=== PATIENT | female | born 1945 | race Caucasian/White ===

== ENCOUNTER 2022-10-29 13:26 | Emergency (ER) | payer OTHER ==
[2022-10-29 14:00] VITALS: BP 122/75; PULSE 74; RESP 20; TEMP 98.2; BMI 29.2
[2022-10-29 16:07] LABS: HEMATOCRIT 42.9 % (32.4-45.2); HEMOGLOBIN 15.2 G/dL (10.7-15.3); MCH 30.4 pg (25.7-33.7); MCHC 35.5 g/dl (32.0-36.0); MEAN CELL VOLUME 85.7 fl (80-96); MEAN PLT VOLUME 8.1 fl (7.5-11.1); PLATELET COUNT 251.2 10^3/uL (134-434); RDW 15.2 % (11.6-15.6); WHITE BLOOD COUNT 9.8 10^3/uL (4.0-10.8)
[2022-10-29 16:25] LABS: ALBUMIN 3.9 g/dl (3.4-5.0); BILIRUBIN,TOTAL 1.9 mg/dl (0.2-1); CALCIUM 9.1 mg/dl (8.5-10); CREATININE 0.8 mg/dl (0.55-1.3)
[2022-10-29 17:11] LABS: PLATELET ESTIMATE ADEQUATE
[2022-10-29] MEDS ORDERED: predniSONE 20 MG TABLET (UD) PO ONE (17:53)
[2022-10-29] MEDS ORDERED: predniSONE 20 MG TABLET (UD) ONE (17:54)
[2022-10-29] MEDS ORDERED: AZITHROMYCIN 250 MG TABLET PO ONE (17:54)
[2022-10-29] MEDS ORDERED: AZITHROMYCIN 500 MG TABLET ONE (17:54)
[2022-10-29 19:19] LABS: CALCIUM 8.7 mg/dL (8.5-10.1)
[2022-10-29 19:20] LABS: BLOOD UREA NITROGEN 12.6 mg/dL (7-18)
[2022-10-29 19:23] LABS: CREATININE 0.7 mg/dL (0.55-1.3)
== END 2022-10-29 18:04 | disposition home or self-care (01) ==
LOC: FER 13:26
DX: U07.1 COVID-19 (principal)
CPT/HCPCS: 0241U-QW; 36415; 71045-TC-FY; 80048; 80053; 84484; 85027; 87040; 93005; 99285-25

== ENCOUNTER 2025-04-15 21:32 | Inpatient (IN) | payer OTHER ==
[2025-04-15 22:24] LABS: ABSOLUTE IMMATURE GRANULOCYTES 0.05 x10^3/uL (0.0-0.031); BASOPHILS # 0.03 x10^3/uL (0.01-0.08); EOSINOPHIL % 0.1 % (0.7-5.8); EOSINOPHILS # 0.01 x10^3/uL (0.04-0.36); HEMATOCRIT 47.1 % (34.1-44.9); HEMOGLOBIN 15.7 g/dL (11.2-15.7); MCHC 33.3 g/dl (32.2-35.5); MEAN CELL VOLUME 87.9 fl (79.4-94.8); MEAN PLT VOLUME 9.3 fl (9.4-12.3); MONOCYTE # 0.85 x10^3/uL (0.24-0.86); MONOCYTE % 6.8 % (4.7-12.5); PLATELET COUNT 419 x10^3/uL (182-369); RDW 13.9 % (12.5-17.0); VENOUS BASE EXCESS 4.6 mmol/L (-2-2); VENOUS O2 SATURATION 86.7 % (70-80); VENOUS PCO2 38.5 mmHg (38-52); VENOUS PH 7.483 (7.310-7.410)
[2025-04-15 22:40] LABS: INR 1.11 (0.83-1.09); PROTHROMBIN TIME (PATIENT) 12.1 SEC (9.7-13.0)
[2025-04-15 22:42] LABS: ACTIVATED PTT 26.7 SECONDS (25.2-36.5)
[2025-04-15 22:51] LABS: POTASSIUM 4.4 mmol/L (3.5-5.1)
[2025-04-15 22:53] LABS: CALCIUM 10.5 mg/dL (8.5-10.1)
[2025-04-15 22:54] LABS: BLOOD UREA NITROGEN 19.9 mg/dL (7-18)
[2025-04-15 22:57] LABS: CREATININE 0.8 mg/dL (0.55-1.3); PHOSPHOROUS 4.5 mg/dL (2.5-4.9)
[2025-04-15 22:58] LABS: BILIRUBIN,TOTAL 1.1 mg/dL (0.2-1); TOT PROT 7.2 g/dl (6.4-8.2)
[2025-04-15] MEDS: SODIUM CHLORIDE 1,000 ML IV STA (23:38)
[2025-04-16] MEDS ORDERED: ONDANSETRON 4 MG/2 ML VIAL ONE (00:38)
[2025-04-16] MEDS: ONDANSETRON 4 MG/2 ML VIAL IVPUSH ONE (01:16)
[2025-04-16] MEDS ORDERED: ONDANSETRON 4 MG/2 ML VIAL IVPUSH PRN (02:34)
[2025-04-16] MEDS ORDERED: hydrALAZINE HCL 20 MG/ML VIAL IVPUSH PRN ×2 (02:37→02:45)
[2025-04-16] MEDS: SODIUM CHLORIDE 1,000 ML IV SCH (02:44)
[2025-04-16] MEDS: ACETAMINOPHEN 1000 MG/100 ML BAG IVPB PRN (05:15)
[2025-04-16] MEDS: INSULIN ASPART SLIDING SCALE (NOVOLOG) 1 VIAL SQ SCH (06:36)
[2025-04-16 07:40] LABS: ABSOLUTE IMMATURE GRANULOCYTES 0.05 x10^3/uL (0.0-0.031); BASOPHILS # 0.03 x10^3/uL (0.01-0.08); EOSINOPHIL % 0.1 % (0.7-5.8); EOSINOPHILS # 0.01 x10^3/uL (0.04-0.36); HEMATOCRIT 42.1 % (34.1-44.9); HEMOGLOBIN 13.9 g/dL (11.2-15.7); MEAN CELL VOLUME 88.3 fl (79.4-94.8); MEAN PLT VOLUME 9.3 fl (9.4-12.3); MONOCYTE # 0.62 x10^3/uL (0.24-0.86); MONOCYTE % 5.8 % (4.7-12.5); PLATELET COUNT 341 x10^3/uL (182-369); RDW 14.1 % (12.5-17.0)
[2025-04-16 07:58] LABS: ALBUMIN 3.5 g/dl (3.4-5.0); BLOOD UREA NITROGEN 19.1 mg/dL (7-18); CALCIUM 10.1 mg/dL (8.5-10.1); POTASSIUM 3.6 mmol/L (3.5-5.1)
[2025-04-16 08:01] LABS: BILIRUBIN,DIRECT 0.3 mg/dL (0.0-0.2); CREATININE 0.7 mg/dL (0.55-1.3)
[2025-04-16 08:02] LABS: BILIRUBIN,TOTAL 0.9 mg/dL (0.2-1); PHOSPHOROUS 4.2 mg/dL (2.5-4.9); TOT PROT 6.2 g/dl (6.4-8.2)
[2025-04-16] MEDS: LEVOTHYROXINE SODIUM 100 MCG 5 ML VIAL IVPUSH SCH (09:29)
[2025-04-16] MEDS: ENOXAPARIN NA (PORCINE) 40 MG/0.4 ML DISP.SYRIN SQ SCH (09:29)
[2025-04-16] MEDS ORDERED: LEVOTHYROXINE SODIUM 100 MCG 5 ML VIAL IVPUSH SCH (10:00)
[2025-04-16 18:38] LABS: PH,URINE 5.5 (5.0-8.0); URINE APPEARANCE CLEAR; URINE BILIRUBIN NEGATIVE (NEGATIVE); URINE COLOR YELLOW; URINE GLUCOSE (UA) NEGATIVE (NEGATIVE); URINE KETONE >=80 mg/dl (NEGATIVE); URINE LEUK ESTERASE NEGATIVE (NEGATIVE); URINE NITRITE NEGATIVE (NEGATIVE); URINE PROTEIN 30 (NEGATIVE)
[2025-04-17 08:13] LABS: ABSOLUTE IMMATURE GRANULOCYTES 0.06 x10^3/uL (0.0-0.031); BASOPHILS # 0.03 x10^3/uL (0.01-0.08); EOSINOPHIL % 0.7 % (0.7-5.8); EOSINOPHILS # 0.07 x10^3/uL (0.04-0.36); HEMATOCRIT 40.8 % (34.1-44.9); HEMOGLOBIN 13.5 g/dL (11.2-15.7); MCHC 33.1 g/dl (32.2-35.5); MEAN CELL VOLUME 89.7 fl (79.4-94.8); MEAN PLT VOLUME 9.4 fl (9.4-12.3); MONOCYTE # 0.58 x10^3/uL (0.24-0.86); MONOCYTE % 6.1 % (4.7-12.5); PLATELET COUNT 326 x10^3/uL (182-369); RDW 13.9 % (12.5-17.0)
[2025-04-17 08:47] LABS: ALBUMIN 3.5 g/dl (3.4-5.0); BILIRUBIN,TOTAL 0.8 mg/dL (0.2-1); BLOOD UREA NITROGEN 15.3 mg/dL (7-18); CALCIUM 9.5 mg/dL (8.5-10.1)
[2025-04-17 08:49] LABS: CREATININE 0.6 mg/dL (0.55-1.3)
[2025-04-17] MEDS: KCL 10 MEQ IVPB 10 MEQ/100 ML INFUS.BAG IVPB SCH ×2 (10:03→19:53)
[2025-04-17 13:48] VITALS: BMI 20.7
[2025-04-17] MEDS: PHENOL 177 ML SPRAY BOTTLE MM PRN (17:10)
[2025-04-17] MEDS ORDERED: D5-1/2NS+40 MEQ KCL - 40 MEQ/1,000 ML INFUS.BAG IV SCH (17:15)
[2025-04-17] MEDS: D5-1/2NS+40 MEQ KCL - 40 MEQ/1,000 ML INFUS.BAG IV SCH (18:57)
[2025-04-17] MEDS: AMINO ACIDS 4.25%/D5W 1,000 ML IV SCH (20:33)
[2025-04-17] MEDS: PANTOPRAZOLE SODIUM 40 MG VIAL IVPUSH SCH (21:27)
[2025-04-17 23:43] LABS: CHLORIDE 100 mmol/L (98-107); SODIUM 139 mmol/L (136-145)
[2025-04-17 23:44] LABS: CALCIUM 9.1 mg/dL (8.5-10.1)
[2025-04-17 23:45] LABS: BLOOD UREA NITROGEN 11.2 mg/dL (7-18); CO2 28 mmol/L (21-32); GLUCOSE,RANDOM 114 mg/dL (74-106)
[2025-04-17 23:48] LABS: CREATININE 0.6 mg/dL (0.55-1.3)
[2025-04-17 23:54] LABS: ANION GAP 12 mmol/L (4-13); POTASSIUM 2.8 mmol/L (3.5-5.1)
[2025-04-18] MEDS: KCL 10 MEQ IVPB 10 MEQ/100 ML INFUS.BAG IVPB SCH (00:10)
[2025-04-18 08:36] LABS: ABSOLUTE IMMATURE GRANULOCYTES 0.22 x10^3/uL (0.0-0.031); BASOPHILS # 0.04 x10^3/uL (0.01-0.08); EOSINOPHIL % 1.1 % (0.7-5.8); EOSINOPHILS # 0.12 x10^3/uL (0.04-0.36); HEMATOCRIT 40.5 % (34.1-44.9); HEMOGLOBIN 13.5 g/dL (11.2-15.7); MCHC 33.3 g/dl (32.2-35.5); MEAN CELL VOLUME 88.2 fl (79.4-94.8); MEAN PLT VOLUME 9.5 fl (9.4-12.3); MONOCYTE # 0.79 x10^3/uL (0.24-0.86); MONOCYTE % 7.1 % (4.7-12.5); PLATELET COUNT 322 x10^3/uL (182-369); RDW 13.6 % (12.5-17.0)
[2025-04-18 08:45] LABS: POTASSIUM 3.6 mmol/L (3.5-5.1)
[2025-04-18 09:25] LABS: ALBUMIN 3.4 g/dl (3.4-5.0)
[2025-04-18 09:26] LABS: BLOOD UREA NITROGEN 9.1 mg/dL (7-18); CALCIUM 9.1 mg/dL (8.5-10.1)
[2025-04-18 09:34] LABS: CREATININE 0.6 mg/dL (0.55-1.3)
[2025-04-18 09:35] LABS: BILIRUBIN,TOTAL 1.2 mg/dL (0.2-1)
[2025-04-18 09:38] LABS: TOT PROT 5.9 g/dl (6.4-8.2)
[2025-04-18] MEDS ORDERED: PANTOPRAZOLE SODIUM 40 MG VIAL IVPUSH SCH (10:00)
[2025-04-18] MEDS: dilTIAZem HCL 30 MG TABLET PO ONE (12:22)
[2025-04-18 13:28] LABS: MAGNESIUM 1.9 mg/dL (1.8-2.4)
[2025-04-18] MEDS ORDERED: ONDANSETRON 4 MG/2 ML VIAL IVPUSH PRN (14:57)
[2025-04-18] MEDS ORDERED: PHENOL 177 ML SPRAY BOTTLE MM PRN (14:57)
[2025-04-18] MEDS: INSULIN ASPART SLIDING SCALE (NOVOLOG) 1 VIAL SQ SCH (17:09)
[2025-04-18] MEDS: dilTIAZem HCL 30 MG TABLET PO SCH (17:28)
[2025-04-18] MEDS: PHENOL 177 ML SPRAY BOTTLE MM SCH (17:30)
[2025-04-18] MEDS ORDERED: DEXTROSE 5%-0.45% SALINE 1,000 ML IV SCH (19:00)
[2025-04-18] MEDS: DEXTROSE 5%-0.45% SALINE 1,000 ML IV SCH (20:01)
[2025-04-18] MEDS: ENOXAPARIN NA (PORCINE) 60 MG/0.6 ML DISP.SYRIN SQ SCH (21:04)
[2025-04-18] MEDS: PANTOPRAZOLE SODIUM 40 MG VIAL IVPUSH SCH (21:05)
[2025-04-18] MEDS: ACETAMINOPHEN 1000 MG/100 ML BAG IVPB PRN (23:33)
[2025-04-19] MEDS: LEVOTHYROXINE SODIUM 100 MCG 5 ML VIAL IVPUSH SCH (06:29)
[2025-04-19 07:50] LABS: ABSOLUTE IMMATURE GRANULOCYTES 0.05 x10^3/uL (0.0-0.031); BASOPHILS # 0.04 x10^3/uL (0.01-0.08); EOSINOPHIL % 2.4 % (0.7-5.8); EOSINOPHILS # 0.23 x10^3/uL (0.04-0.36); HEMATOCRIT 41.7 % (34.1-44.9); HEMOGLOBIN 14.2 g/dL (11.2-15.7); MCHC 34.1 g/dl (32.2-35.5); MEAN CELL VOLUME 86.5 fl (79.4-94.8); MEAN PLT VOLUME 9.8 fl (9.4-12.3); MONOCYTE # 0.68 x10^3/uL (0.24-0.86); MONOCYTE % 7.1 % (4.7-12.5); PLATELET COUNT 279 x10^3/uL (182-369); RDW 13.5 % (12.5-17.0)
[2025-04-19 08:03] LABS: CALCIUM 8.9 mg/dL (8.5-10.1)
[2025-04-19 08:04] LABS: ALBUMIN 3.2 g/dl (3.4-5.0); BLOOD UREA NITROGEN 6.8 mg/dL (7-18)
[2025-04-19 08:08] LABS: BILIRUBIN,TOTAL 1.2 mg/dL (0.2-1); TOT PROT 5.8 g/dl (6.4-8.2)
[2025-04-19] MEDS ORDERED: DEXTROSE 5%-0.45% SALINE 1,000 ML IV SCH (08:50)
[2025-04-19 08:51] LABS: CREATININE 0.4 mg/dL (0.55-1.3)
[2025-04-19 09:30] LABS: MAGNESIUM 1.7 mg/dL (1.8-2.4)
[2025-04-19] MEDS ORDERED: D5-1/2NS+40 MEQ KCL - 40 MEQ/1,000 ML INFUS.BAG IV SCH (11:45)
[2025-04-19] MEDS: MAGNESIUM SULFATE IN WATER 2 GM/50 ML IVPB IVPB ONE (11:57)
[2025-04-19] MEDS: POTASSIUM CHLORIDE 40 MEQ in DEXTROSE 5%-LACTATED RINGERS 980 ML IV SCH (12:24)
[2025-04-19] MEDS: KCL 10 MEQ IVPB 10 MEQ/100 ML INFUS.BAG IVPB SCH ×2 (17:53→22:25)
[2025-04-19 22:39] LABS: POTASSIUM 3.7 mmol/L (3.5-5.1)
[2025-04-19 22:41] LABS: ALBUMIN 3.4 g/dl (3.4-5.0)
[2025-04-19 22:42] LABS: BLOOD UREA NITROGEN 7.3 mg/dL (7-18)
[2025-04-19 22:45] LABS: CREATININE 0.6 mg/dL (0.55-1.3); PHOSPHOROUS 2.7 mg/dL (2.5-4.9)
[2025-04-19 22:46] LABS: TOT PROT 6.2 g/dl (6.4-8.2)
[2025-04-20 07:34] LABS: ABSOLUTE IMMATURE GRANULOCYTES 0.04 x10^3/uL (0.0-0.031); BASOPHILS # 0.03 x10^3/uL (0.01-0.08); EOSINOPHIL % 1.4 % (0.7-5.8); EOSINOPHILS # 0.13 x10^3/uL (0.04-0.36); HEMATOCRIT 42.3 % (34.1-44.9); HEMOGLOBIN 14.4 g/dL (11.2-15.7); MEAN CELL VOLUME 85.6 fl (79.4-94.8); MEAN PLT VOLUME 9.2 fl (9.4-12.3); MONOCYTE # 0.54 x10^3/uL (0.24-0.86); MONOCYTE % 5.7 % (4.7-12.5); PLATELET COUNT 288 x10^3/uL (182-369); RDW 13.4 % (12.5-17.0)
[2025-04-20 07:54] LABS: POTASSIUM 3.9 mmol/L (3.5-5.1)
[2025-04-20 08:02] LABS: ALBUMIN 3.2 g/dl (3.4-5.0); BLOOD UREA NITROGEN 6.4 mg/dL (7-18); CALCIUM 9.2 mg/dL (8.5-10.1); MAGNESIUM 1.9 mg/dL (1.8-2.4)
[2025-04-20 08:05] LABS: CREATININE 0.5 mg/dL (0.55-1.3)
[2025-04-20] MEDS: dilTIAZem HCL 50 MG/10 ML - 10 ML VIAL IVPUSH ONE (08:11)
[2025-04-20 08:13] VITALS: TEMP 97.7
[2025-04-20 16:48] VITALS: BP 139/94; PULSE 112; RESP 15
== END 2025-04-20 17:10 | disposition short-term general hospital (02) | DRG 374 ==
LOC: JER 21:32 → JERBED 04-16 01:45 → J6S 04-16 04:20 → J4W 04-18 14:30
PROVIDERS: ADMIT Internal Medicine; ATTEND Internal Medicine
DX: D49.0 Neoplasm of unspecified behavior of digestive system (principal); E43 Unspecified severe protein-calorie malnutrition; K31.1 Adult hypertrophic pyloric stenosis; K86.89 Other specified diseases of pancreas; I10 Essential (primary) hypertension; E11.9 Type 2 diabetes mellitus without complications; J45.909 Unspecified asthma, uncomplicated; E78.5 Hyperlipidemia, unspecified; E03.9 Hypothyroidism, unspecified; I48.91 Unspecified atrial fibrillation; R19.00 Intra-abdominal and pelvic swelling, mass and lump, unspecified site; Z68.20 Body mass index [BMI] 20.0-20.9, adult
CPT/HCPCS: 0241U-QW; 36415; 71045-TC-FY; 74177-TC; 74183-TC; 80048; 80053; 81003; 82248; 82803; 82962; 83036; 83605; 83690; 83735; 84100; 84484; 85025; 85610; 85730; 87077; 87086; 93005; 93010; 93306-TC; 99285-25; Q9967